=== PATIENT | female | born 1950 | race Caucasian/White ===

== ENCOUNTER 2016-06-07 07:40 | Emergency (ER) | payer BC ==
[~2016-06-07] VITALS: Ht 157.5 cm; Wt 45.8 kg
[~2016-06-07 07:40] MED LIST: ASPI1TAB69 PO; CYAN100017 PO; EPIP0.3I IM; ESTE500T6; FISHCAP4 PO; LINA290C PO; MIRA33504 PO; TOPI1TAB97 PO; VENL75CA44 PO; ZYRT10CA PO
[2016-06-07 07:51] VITALS: BP 137/107; PULSE 97; RESP 16; TEMP 97.8; O2SAT 99
[2016-06-07] MEDS ORDERED: ZANT150T2 PO (08:02)
--- NOTE | 2016-06-07 08:21 | PD ---
HPI Chief Complaint: Abdominal Pain Time Seen by Provider: 08:09 Travel History International Travel<30 days: No Contact w/Intl Traveler<30days: No Traveled to known affect area: No History of Present Illness HPI This is a 65-year-old female who presents to the emergency department with 1 month of intermittent epigastric discomfort, worse in the evenings associated with belching. She says yesterday her father and last night she was awakened in the middle the night with some right upper quadrant abdominal pain, constant, moderate severity radiating to her right shoulder. She tried some icy hot on her right shoulder but that didn't help. She had an episode of vomiting overnight. She denies any fevers or chills. She's had normal bowel movements. She's never had any abdominal surgeries. PFSH Past Medical History Anxiety: Yes Depression: Yes Cardiovascular Problems: Yes Diminished Hearing: No Gastrointestinal Disorders: Yes (IBS) GERD: Yes Influenza Vaccination: Yes ?: Not Past Surgical History Gynecologic Surgery: Yes (laproscopic) Social History Alcohol Use: No Tobacco Use: No Allergies-Medications (Allergen,Severity, Reaction): Coded Allergies: Bee Sting (Verified Allergy, Severe, hives, trouble breathing., 06/07/16) Penicillin (Verified Allergy, Severe, RASH, 06/07/16) Reported Meds & Prescriptions Reported Meds & Active Scripts Active Epipen 2-Christopher Inj (Epinephrine) 0.3 Mg/0.3 Ml Pfpen 0.3 Mg IM ONCE PRN Venlafaxine ER 24 HR (Venlafaxine HCl) 75 Mg Cap 75 Mg PO DAILY Topiramate 25 Mg Tab 25 Mg PO DAILY Linzess (Linaclotide) 290 Mcg Cap 290 Mcg PO DAILY Reported Zantac (Ranitidine HCl) 150 Mg Tab 150 Mg PO DAILY Petrona-C 500-60 mg (Vitamin Mixture) 1 Tab Tab Aspirin 81 Mg Tabdr 81 Mg PO DAILY Fish Oil + D3 (Fish Oil-Cholecalciferol) 1,200-1,000 Mg-Unit Cap 1 Cap PO DAILY Zyrtec Allergy (Cetirizine HCl) 10 Mg Cap 10 Mg PO DAILY B-12 (Cyanocobalamin) 1,000 Mcg Cap 1,000 Mcg PO DAILY Miralax Powder (Polyethylene Glycol 3350 Powder) 17 Gm Powd 17 Gm PO DAILY Mix and dissolve one measuring cap-ful (17 grams) in water or juice. Review of Systems Except as stated in HPI: all other systems reviewed are Neg Physical Exam Narrative GENERAL:Well appearing, no acute distress SKIN: Focused skin assessment warm and dry. HEAD: Atraumatic. Normocephalic. EYES: Pupils equal and round. No injection or drainage. ENT: Moist mucous membranes NECK: Trachea midline. CARDIOVASCULAR: Regular rate and rhythm. No murmur appreciated. RESPIRATORY: Clear to auscultation. Breath sounds equal bilaterally. GASTROINTESTINAL: Abdomen soft, tender to palpation in the right upper quadrant with no rebound or guarding. MUSCULOSKELETAL: No obvious deformities. NEUROLOGICAL: Awake and alert. No obvious cranial nerve deficits. Moving all extremities. PSYCHIATRIC: Appropriate mood and affect; insight and judgment normal. Data Data Last Documented VS Vital Signs Date Time Temp Pulse Resp B/P Pulse Ox O2 Delivery O2 Flow Rate FiO2 06/07/16 09:34 72 18 158/92 97 Room Air 06/07/16 07:51 97.8 Orders Complete Blood Count With Diff (06/07/16 08:18) Comprehensive Metabolic Panel (06/07/16 08:18) Lipase (06/07/16 08:18) Us Abdomen Gallbladder (06/07/16 ) Iv Access Insert/Monitor (06/07/16 08:18) Ecg Monitoring (06/07/16 08:18) Oximetry (06/07/16 08:18) Sodium Chloride 0.9% Flush (Ns Flush) (06/07/16 08:30) Sodium Chlor 0.9% 1000 Ml Inj (Ns 1000 M (06/07/16 08:30) Electrocardiogram (06/07/16 ) Troponin I (06/07/16 08:18) Ct Abd/Pel W Iv Contrast(Rout) (06/07/16 ) Urinalysis - C+S If Indicated (06/07/16 09:48) Chest, Single Ap (06/07/16 ) Iohexol 350 Inj (Omnipaque 350 Inj) (06/07/16 10:36) Labs Laboratory Tests Test 06/07/16 06/07/16 08:20 09:55 White Blood Count 15.9 TH/MM3 Red Blood Count 4.15 MIL/MM3 Hemoglobin 12.5 GM/DL Hematocrit 37.2 % Mean Corpuscular Volume 89.8 FL Mean Corpuscular Hemoglobin 30.2 PG Mean Corpuscular Hemoglobin 33.6 % Concent Red Cell Distribution Width 12.8 % Platelet Count 305 TH/MM3 Mean Platelet Volume 7.3 FL Neutrophils (%) (Auto) 81.5 % Lymphocytes (%) (Auto) 6.0 % Monocytes (%) (Auto) 7.8 % Eosinophils (%) (Auto) 0.5 % Basophils (%) (Auto) 4.2 % Neutrophils # (Auto) 12.9 TH/MM3 Lymphocytes # (Auto) 1.0 TH/MM3 Monocytes # (Auto) 1.2 TH/MM3 Eosinophils # (Auto) 0.1 TH/MM3 Basophils # (Auto) 0.7 TH/MM3 CBC Comment DIFF FINAL Differential Comment Sodium Level 138 MEQ/L Potassium Level 3.5 MEQ/L Chloride Level 102 MEQ/L Carbon Dioxide Level 25.8 MEQ/L Anion Gap 10 MEQ/L Blood Urea Nitrogen 9 MG/DL Creatinine 0.68 MG/DL Estimat Glomerular Filtration 87 ML/MIN Rate Random Glucose 112 MG/DL Calcium Level 9.1 MG/DL Total Bilirubin 0.5 MG/DL Aspartate Amino Transf 43 U/L (AST/SGOT) Alanine Aminotransferase 56 U/L (ALT/SGPT) Alkaline Phosphatase 73 U/L Troponin I LESS THAN 0.02 NG/ML Total Protein 7.6 GM/DL Albumin 3.8 GM/DL Lipase 149 U/L Urine Collection Type CLEAN CATCH Urine Color STRAW Urine Turbidity CLEAR Urine pH 7.0 Urine Specific [place] 1.005 Urine Protein NEG mg/dL Urine Glucose (UA) NEG mg/dL Urine Ketones NEG mg/dL Urine Occult Blood NEG Urine Nitrite NEG Urine Bilirubin NEG Urine Leukocyte Esterase NEG Urine WBC /hpf Urine Squamous Epithelial 0-5 /hpf Cells Urine Amorphous Sediment FEW Microscopic Urinalysis Comment CULT NOT INDICATED Urine Collection Time 09:55 [facility] Medical Decision Making Medical Screen Exam Complete: Yes Emergency Medical Condition: Yes Interpretation(s) Afebrile, mild tachycardia, normotensive Leukocytosis with 81% neutrophils Electrolytes are reassuring Mild transaminitis Troponin is normal Lipase is normal Urinalysis: No infection Last 24 hours Impressions Gall Bladder Ultrasound 06/07/16 0000 Signed Impressions: Service Date/Time: May 13:51 - CONCLUSION: Negative exam. Leoncio Larson MD Chest X-Ray 06/07/16 0000 Signed Impressions: Service Date/Time: May 09:53 - CONCLUSION: No acute cardiopulmonary abnormality is identified. Dixon Franco MD CT abdomen and pelvis: Air-fluid levels in the small bowel consistent with possible gastroenteritis Differential Diagnosis Cholelithiasis, cholecystitis, myocardial infarction, appendicitis, gastroenteritis Narrative Course This is a 65-year-old female who presents to the emergency department with right upper quadrant abdominal pain and vomiting that started yesterday and has progressed overnight. She was placed on a monitor and an IV was established. Labs demonstrate a leukocytosis with a mild transaminitis. Right upper quadrant ultrasound was negative for cholecystitis. Chest x-ray was reassuring with no evidence of pneumonia. CT abdomen and pelvis demonstrates some air- fluid levels consistent with gastroenteritis. Patient will be discharged with Zofran and conservative management. Diagnosis Primary Impression: Gastroenteritis Patient Instructions: General Instructions Additional Instructions: If you develop lightheadedness, dizziness, persistent vomiting, inability to eat , or severe abdominal pain return to the emergency department. Followup with your primary care physician in 2-3 days if your symptoms have not resolved. Wash your hands agressively after using the restroom as to not spread your illness to others. Do not return to work until your symptoms have resolved. Take Zofran as needed for nausea. Med/Other Pt SpecificInfo: Prescription(s) given Scripts Ondansetron Odt (Zofran Odt)4 Mg Tab4 Mg SL Q6HR PRN (Nausea/Vomiting) #15 TAB Prov:Sailaja Bravo MD 06/07/16 Disposition: 01 DISCHARGE HOME Condition: Stable Sailaja Bravo MD Jun 07, 2016 08:20
[2016-06-07 08:25] VITALS: BP 163/98; PULSE 81; RESP 18; O2SAT 99
[2016-06-07] MEDS ORDERED: SODIUM CHLOR 0.9% 1000 ML INJ 1,000 ML IV ONE (08:30)
[2016-06-07] MEDS ORDERED: SODIUM CHLORIDE 0.9% FLUSH 10 ML FLUSH IV FLUSH PRN (08:30)
[2016-06-07 08:31] LABS: AUTOMATED NEUTROPHIL # 12.9 TH/MM3 (1.8-7.7); BASOPHIL # 0.7 TH/MM3 (0-0.2); BASOPHIL % 4.2 % (0.0-2.0); EOSINOPHIL # 0.1 TH/MM3 (0-0.4); EOSINOPHIL % 0.5 % (0.0-4.0); HEMATOCRIT 37.2 % (35.0-46.0); MEAN CELL VOLUME 89.8 FL (80.0-100.0); MEAN CORPUSCULAR HEMOGLOBIN 30.2 PG (27.0-34.0); MEAN CORPUSCULAR HGB CONC 33.6 % (32.0-36.0); MONO % 7.8 % (0.0-8.0); NEUT % 81.5 % (16.0-70.0); PLATELET COUNT 305 TH/MM3 (150-450); RED BLOOD COUNT 4.15 MIL/MM3 (4.00-5.30); RED CELL DISTRIBUTION WIDTH 12.8 % (11.6-17.2); WHITE BLOOD COUNT 15.9 TH/MM3 (4.0-11.0)
[2016-06-07 08:32] LABS: HEMO FLAGS DIFF FINAL
[2016-06-07 08:39] LABS: CHLORIDE 102 MEQ/L (98-107); POTASSIUM 3.5 MEQ/L (3.5-5.1); SODIUM (NA) 138 MEQ/L (136-145)
[2016-06-07 08:43] LABS: ANION GAP 10 MEQ/L (5-15); BICARBONATE 25.8 MEQ/L (21.0-32.0); BLOOD UREA NITROGEN 9 MG/DL (7-18)
[2016-06-07 08:45] LABS: ALT (GPT) 56 U/L (10-53)
[2016-06-07 08:46] LABS: AST (GOT) 43 U/L (15-37); GLOMERULAR FILTRATION RATE 87 ML/MIN (>89)
[2016-06-07 08:47] LABS: TOTAL BILIRUBIN ADULT 0.5 MG/DL (0.2-1.0)
[2016-06-07 08:48] LABS: ALKALINE PHOSPHATASE 73 U/L (45-117)
[2016-06-07 09:34] VITALS: BP 158/92; PULSE 72; RESP 18; O2SAT 97
[2016-06-07 10:08] LABS: BLOOD, URINE NEG (NEG); GLUCOSE,URINE NEG (NEG); KETONE, URINE NEG (NEG); NITRITE,URINE NEG (NEG)
[2016-06-07 10:14] LABS: COMMENT (UR) CULT NOT INDICATED; CULTURE IF INDICATED CULT NOT INDICATED; METHOD OF COLLECTION CLEAN CATCH; SQUAMOUS EPITHELIAL CELL URINE 0-5 /hpf (0-5); URINE COLOR STRAW (YELLW/STRAW)
--- NOTE | 2016-06-07 10:27 | RADHPO ---
EXAM DATE/TIME: 06/07/2016 13:51 [facility] COMPARISON: No previous studies available for comparison. INDICATIONS : Right upper quadrant pain, nausea, vomiting, belching. MEDICAL HISTORY : Gastroesophageal reflux disease. IBS. SURGICAL HISTORY : Gynecological laporascopic. ENCOUNTER: Initial ACUITY: 1 month PAIN SCORE: 5/10 LOCATION: Right upper quadrant MEASUREMENTS: LIVER: 16.6 cm length COMMON DUCT: 3 mm RIGHT KIDNEY: 11..3 x 4.9 x 4.1 cm FINDINGS: LIVER: Normal echotexture without focal lesion or ductal dilatation. COMMON DUCT: No intraluminal mass or stone visualized. GALLBLADDER: Contains no stones, demonstrates no wall thickening or pericholecystic fluid. PANCREAS: The visualized portions are within normal limits. RIGHT KIDNEY: No evidence of hydronephrosis, stone, or mass. CONCLUSION: Negative exam. Leoncio Larson MD on June 07, 2016 at 10:24 Board Certified Radiologist. This report was verified electronically.
[2016-06-07] MEDS ORDERED: IOHEXOL 350 MG/ML 10 ML VIAL (for RAD DIAG) IV ONE (10:36)
--- NOTE | 2016-06-07 10:44 | RADHPO ---
EXAM DATE/TIME: 06/07/2016 09:53 [facility] COMPARISON: CT ABDOMEN & PELVIS W CONTRAST, June 07, 2016, 10:22. INDICATIONS : Chest pain since lastnight. MEDICAL HISTORY : None. SURGICAL HISTORY : None. ENCOUNTER: Initial ACUITY: 1 day PAIN SCORE: 8/10 LOCATION: Bilateral chest FINDINGS: Portable AP view of the chest demonstrates a normal-sized cardiac silhouette. No effusion, consolidat ion, or pneumothorax is visualized. The bones and soft tissues demonstrate no acute abnormality. CONCLUSION: No acute cardiopulmonary abnormality is identified. Dixon Franco MD on June 07, 2016 at 10:38 Board Certified Radiologist. This report was verified electronically.
--- NOTE | 2016-06-07 10:47 | RADHPO ---
EXAM DATE/TIME: 06/07/2016 10:22 1 [facility] COMPARISON: US ABDOMEN - GALLBLADDER, June 07, 2016, 13:51. INDICATIONS : Right upper quadrant pain. IV CONTRAST: 80 cc Omnipaque 350 (iohexol) IV ORAL CONTRAST: No oral contrast ingested. RADIATION DOSE: 4.45 CTDIvol (mGy) MEDICAL HISTORY : Gastroesophageal reflux disease. Irritable bowel syndrome. SURGICAL HISTORY : None. ENCOUNTER: Initial ACUITY: 1 day PAIN SCALE: 7/10 LOCATION: Right upper quadrant TECHNIQUE: Volumetric scanning of the abdomen and pelvis was performed. Using automated exposure control and ad justment of the mA and/or kV according to patient size, radiation dose was kept as low as reasonably achievable to obtain optimal diagnostic quality images. FINDINGS: LOWER LUNGS: The visualized lower lungs are clear. LIVER: Homogeneous density without lesion. There is no dilation of the biliary tree. No calcified gallston es. SPLEEN: Normal size without lesion. PANCREAS: Within normal limits. KIDNEYS: Normal in size and shape. There is no mass, stone or hydronephrosis. ADRENAL GLANDS: Within normal limits. VASCULAR: There is no aortic aneurysm. BOWEL/MESENTERY: There are multiple loops of nondilated air-containing small bowel with multiple air-fluid levels. Gas and stool is noted throughout the colon. There is a lack of intra-abdominal fat and poor separation of bowel loops and limited visualization especially given the lack of oral contrast. ABDOMINAL WALL: Within normal limits. RETROPERITONEUM: There is no lymphadenopathy. BLADDER: No wall thickening or mass. REPRODUCTIVE: Within normal limits. INGUINAL: There is no lymphadenopathy or hernia. MUSCULOSKELETAL: Within normal limits for patient age. CONCLUSION: 1. Unremarkable gallbladder with no calcified stones. 2. Nonspecific bowel gas pattern with multiple loops of nondilated small bowel with multiple small ai r-fluid levels. Gas and stool is noted segmentally throughout the colon. This may represent gastroent eritis and/or ileus. Visualization of the bowel and mesentery is limited by the lack of oral contras t and lack of intra-abdominal fat with poor separation of the bowel loops. Yuriy Bennett MD on June 07, 2016 at 10:41 Board Certified Radiologist. This report was verified electronically.
[2016-06-07] MEDS ORDERED: ZOFR4TAB3 SL (10:55)
[2016-06-07 11:05] VITALS: BP 168/88
--- NOTE | 2016-06-07 13:29 | EKG ---
Date Performed: 06/07/2016 Time Performed: 08:24:08 PTAGE: 65 years EKG: Sinus rhythm Leftward axis Borderline ECG NO PREVIOUS TRACING DOCTOR: Arun Weaver Interpretating Date/Time 06/07/2016 13:28:39
== END 2016-06-07 11:07 | disposition home or self-care (01) ==
LOC: PHED 07:40
DX: K52.9 Noninfective gastroenteritis and colitis, unspecified (principal); M25.511 Pain in right shoulder; R94.31 Abnormal electrocardiogram [ECG] [EKG]
CPT/HCPCS: 71010; 74177; 76705; 80053; 81001; 83690; 84484; 85025; 93005; 96360; 99285; J7030; Q9967